=== PATIENT | male | born 1965 | race Caucasian/White ===

== ENCOUNTER 2019-08-21 17:47 | Emergency (ER) | payer OTHER ==
[~2019-08-21] VITALS: Ht 165.1 cm; Wt 89.8 kg
[2019-08-21] MEDS ORDERED: RAMIPRIL5 MG PO (17:51)
[2019-08-21] MEDS ORDERED: ATORVASTATIN CA10 MG PO (17:51)
[2019-08-21] MEDS ORDERED: OMEPRAZOLE40 MG PO (17:52)
== END 2019-08-21 20:34 | disposition home or self-care (01) ==
LOC: ER 17:47
DX: K80.20 Calculus of gallbladder without cholecystitis without obstruction (principal); K40.90 Unilateral inguinal hernia, without obstruction or gangrene, not specified as recurrent

== ENCOUNTER 2021-12-05 14:34 | Inpatient (IN) | payer OTHER ==
[~2021-12-05] VITALS: Ht 165.1 cm; Wt 90.7 kg
[~2021-12-05 14:34] MED LIST: ATORVASTATIN CA10 MG PO; OMEPRAZOLE40 MG PO; RAMIPRIL5 MG PO
[2021-12-05] MEDS ORDERED: AMLODIPINE BESYL5 MG (15:09)
[2021-12-05] MEDS ORDERED: METFORMIN HCL750 MG (15:09)
[2021-12-06] MEDS ORDERED: PANTOPRAZOLE SO40 MG (09:13)
[2021-12-06] MEDS ORDERED: OMEGA-3 ACID ETH1 GM (09:13)
[2021-12-06] MEDS ORDERED: DICLOFENAC POTA50 MG (09:18)
[2021-12-08] MEDS ORDERED: CIPROFLOXACIN500 MG PO (15:06)
[2021-12-08] MEDS ORDERED: INTESTINEX680 M1 PO (15:07)
== END 2021-12-08 18:00 | disposition home or self-care (01) | DRG 690 ==
LOC: ER 14:34 → MEDJ 21:10
PROVIDERS: ADMIT Internal Medicine; ATTEND Internal Medicine
PROC: BW21ZZZ Computerized Tomography (CT Scan) of Abdomen and Pelvis (ICD-10-PCS; principal; 2021-12-05)
DX: N39.0 Urinary tract infection, site not specified (principal); M54.59 Other low back pain; N41.8 Other inflammatory diseases of prostate; K59.09 Other constipation; R30.0 Dysuria; B96.29 Other Escherichia coli [E. coli] as the cause of diseases classified elsewhere; E11.69 Type 2 diabetes mellitus with other specified complication; Z79.4 Long term (current) use of insulin; I10 Essential (primary) hypertension; E78.49 Other hyperlipidemia; E78.00 Pure hypercholesterolemia, unspecified